=== PATIENT | female | born 1970 | race Caucasian/White ===

== ENCOUNTER 2016-12-11 10:40 | Day surgery (SDC) | payer OTHER ==
[~2016-12-11] VITALS: Ht 162.6 cm; Wt 54.0 kg
[~2016-12-11 10:40] MED LIST: FLUT9.9S NS; IMI100 PO; Sodium Chloride LOK Flush 10 mL Syringe IV PRN; fentaNYL-PF 50 mCg/mL 2 mL Inj IVPUSH PRN
[2016-12-11 11:00] VITALS: BP 105/67; PULSE 67; RESP 16; O2SAT 97
[2016-12-11] MEDS: 0.9% Sodium Chloride 1,000 ML IV PRN ×3 (11:19→11:52)
[2016-12-11 12:02] VITALS: BP 86/55; PULSE 67; RESP 16; O2SAT 100
[2016-12-11 12:12] VITALS: BP 88/56; PULSE 62; RESP 16; O2SAT 100
[2016-12-11 12:22] VITALS: BP 86/58; PULSE 53; RESP 16; O2SAT 100
[2016-12-11 12:32] VITALS: BP 88/59; PULSE 57; RESP 16; O2SAT 99
--- NOTE | 2016-12-11 20:50 | ENDO ---
[address] [address] ENDOSCOPY PROCEDURE PATIENT: KENNEY ARREOLA : 1970 MR#: [id number] ADMIT: 12/11/2016 JOB ID: [id number] DATE: 12/11/2016 PRIMARY PROVIDER: Carmelina Ambrocio MD PROCEDURE: 1. Colonoscopy. 2. Cold forceps polypectomy. INDICATIONS: A 46-year-old female with a family history of colon cancer in her younger brother and her grandmother. EQUIPMENT: PCF H 180 AL. SEDATION: 5 mg Versed and 75 mcg fentanyl. COMPLICATIONS: None identified. BOWEL PREPARATION: Excellent. PROCEDURE INFORMATION: After the risks and benefits were explained, written and verbal informed consent was obtained. The patient the patient was brought into the endoscopy suite and placed into the left lateral decubitus position. Sedation was achieved using the above-stated medications with the addition of oxygen via nasal cannula. A digital rectal examination was accomplished. No significant pathology appreciated. The scope was introduced into the rectum and advanced under direct visualization to the level of the cecum as identified by the appendiceal orifice and ileocecal valve. The scope was slowly withdrawn to carefully examine the mucosa for any defects or lesions. Retroflexed views were avoided in the rectum. Multiple direct views were made through the dentate line for exclusion of pathology. The colon was decompressed. The scope removed from the patient who tolerated the procedure well. FINDINGS: There was a very diminutive, probably hyperplastic, polyp removed from the sigmoid colon. No other significant pathology was appreciated throughout. ENDOSCOPIC DIAGNOSES: Diminutive sigmoid polyp. RECOMMENDATIONS: 1. Await histopathology. 2. Repeat colonoscopy five years considering family history.
--- NOTE | 2016-12-12 13:37 | PATH ---
SURGICAL PATHOLOGY Attending Physician:Bhavana Phipps CASE STATUS: Signed Out PATIENT NAME: KENNEY ARREOLA PID: [id number] : 1970 DATE COLLECTED:12/11/2016 20:13 SPECIMEN: Colon, Biopsy CLINICAL HISTORY: FAMILY HISTORY OF COLON CANCER COLON POLYP 1). SIGMOID COLON POLYP FINAL DIAGNOSIS: 1.SIGMOID COLON POLYP: HYPERPLASTIC POLYP. ICD10 CODE K63.5 GROSS DESCRIPTION: The specimen is received in one formalin filled container labeled with the patient's name, sublabeled "sigmoid colon polyp" and consists of a 0.3 x 0.3 x 0.3 CM portion of tissue which is entirely submitted in one cassette. 12/11/2016 DAC MICRO DESCRIPTION: See diagnosis. ICD-9 CODES: CPT CODES: 1: 75279 Electronically Signed Out Macario Morales MD [facility] [address], [place] [address] Technical component performed at [facility], [facility] [address], [place], [address]
== END 2016-12-11 23:59 | disposition home or self-care (01) ==
LOC: END 10:40
PROVIDERS: ATTEND Internal Medicine Gastroenterology
DX: Z12.11 Encounter for screening for malignant neoplasm of colon (principal); K63.5 Polyp of colon; Z83.71 Family history of colonic polyps; Z80.0 Family history of malignant neoplasm of digestive organs
CPT/HCPCS: 45380; G0500; J7030